=== PATIENT | female | born 1990 ===

== ENCOUNTER 2017-08-10 19:52 | Emergency (ER) | payer MEDICAID ==
[2017-08-10 20:01] VITALS: BP 107/74; RESP 16; TEMP 98.6; O2SAT 100
[2017-08-10 20:43] VITALS: PULSE 99
--- NOTE | 2017-08-10 20:57 | ED PDOC ---
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 denies: Fever, Chills, Nausea, Vomiting Additional Complaint(s): Yessi Thomas is a 26 year old female, with no significant past medical history, who presents to the emergency department complaining of dysuria associated with frequency onset early in the morning. Patient also reports hematuria and lower back pain onset earlier this evening. Patient denies any fever, chills, nausea, vomit, or antipyretic use. No further medical complaints. PMD: None provided. Past Medical History Reviewed: Historical Data, Nursing Documentation, Vital Signs Vital Signs: Last Vital Signs Temp 98.6 F 08/10/17 19:58 Pulse 99 H 08/10/17 20:43 Resp 16 08/10/17 19:58 BP 107/74 08/10/17 19:58 Pulse Ox 100 08/10/17 19:58 - Medical History PMH: Asthma - Surgical History Surgical History: No Surg Hx - Family History Family History: States: No Known Family Hx - Social History Current smoker - smoking cessation education provided: No Alcohol: None Drugs: Denies - Home Medications Home Medications: Ambulatory Orders Medication Instructions Recorded Nitrofurantoin Macrocrystals 100 mg PO BID #14 cap 08/10/17 [Macrobid] Phenazopyridine [Pyridium] 200 mg PO BID #6 tab 08/10/17 - Allergies Allergies/Adverse Reactions: Allergies Allergy/AdvReac Type Severity Reaction Status Date / Time No Known Allergies Allergy Verified 08/10/17 19:58 Review of Systems ROS Statement: Except As Marked, All Systems Reviewed And Found Negative Constitutional: Negative for: Fever, Chills Gastrointestinal: Negative for: Nausea, Vomiting Genitourinary Female: Positive for: Dysuria, Frequency, Hematuria Musculoskeletal: Positive for: Back Pain (lower) Physical Exam - Reviewed Nursing Documentation Reviewed: Yes Vital Signs Reviewed: Yes - Physical Exam Appears: Positive for: Well, Non-toxic, No Acute Distress Head Exam: Positive for: ATRAUMATIC, NORMAL INSPECTION, NORMOCEPHALIC Skin: Positive for: Normal Color, Warm, Dry Eye Exam: Positive for: Normal appearance Neck: Positive for: Painless ROM Gastrointestinal/Abdominal: Positive for: Normal Exam, Soft. Negative for: Tenderness Back: Negative for: L CVA Tenderness, R CVA Tenderness Extremity: Positive for: Normal ROM. Negative for: Tenderness, Deformity, Swelling Neurologic/Psych: Positive for: Alert, Oriented - Laboratory Results Urine POC: Negative Urine dip results: Positive for: Leukocyte Esterase (large), Blood (large), Nitrate (positive), Ketones (40) - ECG O2 Sat by Pulse Oximetry: 100 (RA) Pulse Ox Interpretation: Normal Medical Decision Making Medical Decision Making: Initial impression: UTI Initial Plan: --Urine dipstick --Urine --Pyridium 100 mg PO --Urine C&S On re-evaluation, pt. reports feeling much better. Repeat HR: 99. No CVA tenderness b/l. ~ Scribe Attestation: Documented by Alexys Crowe, acting as a scribe for Garrett Bolden PA-C. Provider Scribe Attestation: All medical record entries made by the Scribe were at my direction and personally dictated by me. I have reviewed the chart and agree that the record accurately reflects my personal performance of the history, physical exam, medical decision making, and the department course for this patient. I have also personally directed, reviewed, and agree with the discharge instructions and disposition. Disposition - Clinical Impression Clinical Impression: Urinary tract infection - Patient ED Disposition Is Patient to be Admitted: No - Disposition [facility] [Outside] Disposition Time: 20:52 Condition: STABLE Prescriptions: Nitrofurantoin Macrocrystals [Macrobid] 100 mg PO BID #14 cap Phenazopyridine [Pyridium] 200 mg PO BID #6 tab Instructions: Urinary Tract Infection, Adult (DC) Forms: [employer] (Indonesian)
== END 2017-08-10 20:52 | disposition home or self-care (01) ==
LOC: H.ER 19:52
DX: N39.0 Urinary tract infection, site not specified (principal)